=== PATIENT | male | born 1975 | race Caucasian/White ===

== ENCOUNTER 2016-11-10 16:50 | Emergency (ER) | payer BC, OTHER ==
[2016-11-10] MEDS ORDERED: Tetan/Diph/Pertus SYR(Tdap)* 0.5 ML SYR(BOOSTRIX) use SYR IM ONE (18:22)
[2016-11-10] MEDS ORDERED: Ibuprofen TAB* 400 MG PO ONE (18:22)
[2016-11-10] MEDS ORDERED: traMADol TAB* 50 MG PO ONE ×3 (18:22→20:58)
--- NOTE | 2016-11-10 19:15 | RAD ---
HISTORY: Trauma to second digit of right hand COMPARISONS: None VIEWS: 3, Frontal, lateral, and oblique views of the second digit of the right hand FINDINGS: BONE DENSITY: Normal. BONES: There is no displaced fracture. JOINTS: There is no arthropathy. ALIGNMENT: There is no dislocation. SOFT TISSUES: There is soft tissue irregularity consistent with the history of laceration OTHER FINDINGS: None. IMPRESSION: NO ACUTE OSSEOUS INJURY. IF SYMPTOMS PERSIST, RECOMMEND REPEAT IMAGING.
[2016-11-10] MEDS ORDERED: Clindamycin CAP* 150 MG PO ONE (20:36)
--- NOTE | 2016-11-10 23:18 | ED ---
Upper Extremity Pain - HPI Summary HPI Summary: Patient was at home splitting wood with a pneumatic splitter when his right index finger was caught between two logs. He had immediate pain and bleeding. His drove him to the ED. His tetanus is not up to date and he has not taken any pain medication. - History of Current Complaint Chief Complaint: EDExtremityUpper Stated Complaint: RT HAND POINTER FINGER LAC Time Seen by Provider: 11/10/16 18:01 Hx Obtained From: Patient, Family/Extractive Metallurgist Mechanism Of Injury: Blunt Trauma Onset/Duration: Started Minutes Ago Timing: Constant Severity Initially: Severe Severity Currently: Severe Pain Location: Finger - right index Character: Sharp, Aching Aggravating Factor(s): Movement Alleviating Factor(s): Nothing Associated Signs & Symptoms: Positive: Swelling, Bruising Related History: Dominant Hand Right - Allergies/Home Medications Allergies/Adverse Reactions: Allergies Allergy/AdvReac Type Severity Reaction Status Date / Time Penicillins Allergy Unknown Unknown Verified 03/18/14 15:32 Reaction Details Prednisone Allergy Unknown Unknown Verified 03/18/14 15:32 Reaction Details bee Allergy Unknown Unknown Uncoded 03/18/14 15:32 Reaction Details PMH/Surg Hx/FS Hx/Imm Hx Endocrine/Hematology History: Reports: Other Endocrine/Hematological Disorders - Goiter Denies: Hx Diabetes Cardiovascular History: Reports: Hx Hypertension Denies: Hx Pacemaker/ICD Respiratory History: Reports: Hx Sleep Apnea - current CPAP user, previous compliance issues, Other Respiratory Problems/Disorders - ex-smoker GI History: Reports: Hx Gastroesophageal Reflux Disease History: Denies: Hx Dialysis, Hx Renal Disease Musculoskeletal History: Reports: Hx Back Problems - s/p lumbar laminectomy [facility], Hx Gout - sonogram 2010 Sensory History: Denies: Hx Hearing Aid Psychiatric History: Denies: Hx Panic Disorder - Surgical History Surgery Procedure, Year, and Place: LSP SURGERY 11/03, RT SHOULDER RCT 2001, RT KNEE SURGERY ARTHROSCOPY 2010, adenoids as a child Infectious Disease History: No Infectious Disease History: Denies: Traveled Outside the [place] in Last 30 Days - Family History Known Family History: Positive: None - Social History Occupation: Employed Full-time Lives: With Family Alcohol Use: Occasionally Substance Use Type: Reports: None Smoking Status (MU): Never Smoked Tobacco Review of Systems Positive: Myalgia, Decreased ROM, Edema Positive: Bruising Negative: Weakness, Paresthesia, Numbness All Other Systems Reviewed And Are Negative: Yes Physical Exam Triage Information Reviewed: Yes Vital Signs On Initial Exam: Initial Vitals Temp Pulse Resp BP Pulse Ox 98.5 F 83 12 150/107 99 11/10/16 16:56 11/10/16 16:56 11/10/16 16:56 11/10/16 16:56 11/10/16 16:56 Vital Signs Reviewed: Yes Appearance: Positive: Well-Appearing, Pain Distress, Obese Skin: Positive: Warm, Skin Color Reflects Adequate Perfusion, Dry, Tender - distal phalanx of right index finger with 2 cm laceration on medial aspect with a 1 cm laceration on the distal tip, Soft Head/Face: Positive: Normal Head/Face Inspection Eyes: Positive: EOMI, RADHIKA, Conjunctiva Clear ENT: Positive: Hearing grossly normal Respiratory/Lung Sounds: Positive: Breath Sounds Present Cardiovascular: Positive: RRR Musculoskeletal: Positive: Limited @ - DIP of right index finger flexion/ extension in 10 degree arc with pain, Pain @ - TTP DIP and distal phalanx of right index finger, Edema Right - index finger tip Neurological: Positive: Sensory/Motor Intact, Alert, Oriented to Person Place, Time, NV Bundle Intact Distally Psychiatric: Positive: Affect/Mood Appropriate AVPU Assessment: Alert Procedures - Laceration/Wound Repair 1 Location: upper extremity - right index finger Description: Linear Anesthesia: Local, 2.0%, Lido Length, Depth and Shape: 2 cm long, 5mm wide, 3mm deep Betadine Prep?: No Irrigated w/ Saline (ccs): 300 Laceration/Wound Explored: clean Closure: Single Layer Debridement: minimal Suture Type: Nylon - 5.0 Number of Sutures: 8 Layer Closure?: No Sterile Dressing Applied?: Yes 2 Location: upper extremity - right index finger tip Description: Linear Anesthesia: Local, 2.0%, Lido Length, Depth and Shape: 1 cm long, 3mm wide, 3 mm deep Betadine Prep?: No Irrigated w/ Saline (ccs): 100 Laceration/Wound Explored: clean Closure: Single Layer Debridement: minimal Suture Type: Nylon - 5.0 Number of Sutures: 3 Layer Closure?: No Sterile Dressing Applied?: Yes Diagnostics - Vital Signs Vital Signs Temp Pulse Resp BP Pulse Ox 02/19/17 16:56 98.5 F 83 12 150/107 99 - Laboratory Lab Statement: Any lab studies that have been ordered have been reviewed, and results considered in the medical decision making process. - Radiology No standard instances Xray Interpretation: No Acute Changes Radiology Interpretation Completed By: Radiologist Course/Dx - Diagnoses Differential Diagnosis/HQI/PQRI: Positive: Arthritis, Bursitis, Contusion, Fracture (Closed), Laceration, Strain, Sprain Provider Diagnoses: Laceration of right index finger, Tetanus, Crushing injury of right index finger Discharge - Discharge Plan Condition: Stable Disposition: HOME Prescriptions: Clindamycin Cap(NF) [Cleocin 300 mg Cap(NF)] 300 mg PO Q6H #38 cap traMADol TAB* [Ultram*] 50 mg PO Q6HR PRN #20 tab MDD 4 PRN Reason: Pain Patient Education Materials: Finger Laceration (ED) Referrals: Cleveland Bush MD [Primary Care Provider] - Additional Instructions: Keep your dressing clean, dry and in place for the next 48 hours. You may then remove and shower. Pat dry and cover with a clean, dry band-aid if you are going to be in a "dirty" environment, otherwise it can remain open to air. Do not soak the wound in any body of water until the sutures are removed. Elevate the hand above your heart and use Ibuprofen 600mg three times daily with meals for the next 5-7 days to reduce pain and swelling. Follow-up with your primary care provider or return to the emergency department in 10-12 days for suture removal. Return to the emergency department sooner if your symptoms worsen.
[2016-11-10 23:46] VITALS: BP 123/94
== END 2016-11-10 21:44 | disposition home or self-care (01) ==
LOC: ED 16:50
DX: S61.210A Laceration without foreign body of right index finger without damage to nail, initial encounter (principal); S67.190A Crushing injury of right index finger, initial encounter; W23.0XXA Caught, crushed, jammed, or pinched between moving objects, initial encounter; Y93.89 Activity, other specified; Y92.009 Unspecified place in unspecified non-institutional (private) residence as the place of occurrence of the external cause; Z88.0 Allergy status to penicillin; I10 Essential (primary) hypertension; G47.30 Sleep apnea, unspecified; K21.9 Gastro-esophageal reflux disease without esophagitis
CPT/HCPCS: 12001; 73140; 90715; 99283; A9270-GY

== ENCOUNTER 2017-01-20 13:38 | Emergency (ER) | payer BC ==
[2017-01-20] MEDS ORDERED: Lidocaine 2% PF * 5 ML VIAL INJ ONE ×2 (16:33→17:08)
--- NOTE | 2017-01-20 16:39 | UC ---
Laceration HPI - HPI Summary HPI Summary: While working at home this morning cut through concrete, brushed it off and cut L palm on edge of rebar. Sprinkled on powdered clotting medicine to stop the bleeding. Last Tdap 2 months ago. Denies any weakness, tingling. - History Of Current Complaint Chief Complaint: UCLaceration Stated Complaint: HAND LACERATION Time Seen by Provider: 01/20/17 16:25 Hx Obtained From: Patient Laceration Location: Hand Mechanism Of Injury: Sharp Trauma Onset/Duration: Sudden Onset Severity: Moderate Aggravating Factors: Nothing - Allergies/Home Medications Allergies/Adverse Reactions: Allergies Allergy/AdvReac Type Severity Reaction Status Date / Time Penicillins Allergy Unknown Unknown Verified 01/20/17 15:25 Reaction Details Prednisone Allergy Unknown Unknown Verified 01/20/17 15:25 Reaction Details Cefaclor [From Ceclor] Allergy Hives Verified 01/20/17 15:25 bee Allergy Unknown Unknown Uncoded 01/20/17 15:25 Reaction Details PMH/Surg Hx/FS Hx/Imm Hx Endocrine History Of: Denies: Diabetes Cardiovascular History Of: Reports: Hypertension Denies: Pacemaker/ICD GI/ History Of: Denies: Renal Disease - Surgical History Surgical History: Yes Surgery Procedure, Year, and Place: LSP SURGERY 11/03, RT SHOULDER RCT 2001, RT KNEE SURGERY ARTHROSCOPY 2010, adenoids as a child - Family History Known Family History: Positive: None - Social History Occupation: Employed Full-time Alcohol Use: Occasionally Substance Use Type: None Smoking Status (MU): Never Smoked Tobacco - Immunization History Most Recent Tetanus Shot: Pt states November 2014 Review of Systems Constitutional: Negative Skin: Other - L hand laceration Eyes: Negative ENT: Negative Respiratory: Negative Cardiovascular: Negative Gastrointestinal: Negative Genitourinary: Negative Motor: Negative Neurovascular: Negative Musculoskeletal: Negative Neurological: Negative Psychological: Negative All Other Systems Reviewed And Are Negative: Yes Physical Exam Triage Information Reviewed: Yes Appearance: Well-Appearing, No Pain Distress, Obese Vital Signs: Initial Vital Signs Temp 98.5 F 01/20/17 15:26 Pulse 85 01/20/17 15:26 Resp 16 01/20/17 15:26 BP 142/99 01/20/17 15:26 Pulse Ox 98 01/20/17 15:26 Vital Signs Reviewed: Yes Eye Exam: Normal Eyes: Positive: Conjunctiva Clear ENT Exam: Normal ENT: Positive: Normal ENT inspection, Hearing grossly normal, Pharynx normal, TMs normal Dental Exam: Normal Neck exam: Normal Respiratory Exam: Normal Respiratory: Positive: Chest non-tender, Lungs clear, Normal breath sounds, No respiratory distress, No accessory muscle use Cardiovascular Exam: Normal Cardiovascular: Positive: RRR, No Murmur Musculoskeletal Exam: Normal, Other - Full strength and ROM of L hand/fingers Musculoskeletal: Positive: Strength Intact Neurological Exam: Normal Neurological: Positive: Alert Psychological Exam: Normal Skin Exam: Other - 3.5cm lac to L palm Laceration Repair - Laceration Repair 1 Description: Linear Laceration Size After Repair: Length (cm) - 3.5, Width (mm) - 0, Depth (mm) - 0 Debridement: picked out pieces of clotting powder prior to suturing Modified For Repair: No Anesthesia Used: 2.0% Lido - 3mL Cleansing Completed Via Routine Prep: Yes Irrigation With Pressure Irrigation Device: Yes Closure Material: Sutures Closure Method: Single Layer Suture Of: Skin Suture Type: Nylon - #6 6-0 Laceration Course/Dx - Differential Dx - Laceration/Wound Provider Diagnoses: L hand laceration repair. elevated blood pressure due to discomfort Discharge - Discharge Plan Condition: Stable Disposition: HOME Patient Education Materials: Laceration (ED) Referrals: Cleveland Bush MD [Primary Care Provider] - 2 Weeks Additional Instructions: Change your bandage at least once daily, more frequently if it gets wet or dirty. Come back in 10 days for suture removal. Come back sooner if you suspect a problem, like infection.
[2017-01-20 17:48] VITALS: BP 140/101
== END 2017-01-20 23:07 | disposition home or self-care (01) ==
LOC: UCEAST 13:38
DX: S61.412A Laceration without foreign body of left hand, initial encounter (principal); W45.8XXA Other foreign body or object entering through skin, initial encounter; Y93.89 Activity, other specified; Y92.009 Unspecified place in unspecified non-institutional (private) residence as the place of occurrence of the external cause; R03.0 Elevated blood-pressure reading, without diagnosis of hypertension; I10 Essential (primary) hypertension; E66.9 Obesity, unspecified; Z88.1 Allergy status to other antibiotic agents; Z88.0 Allergy status to penicillin; Z88.8 Allergy status to other drugs, medicaments and biological substances
CPT/HCPCS: 12002; 99212; G0463

== ENCOUNTER 2017-09-20 08:22 | Emergency (ER) | payer BC ==
[2017-09-20 08:34] VITALS: BP 148/94
--- NOTE | 2017-09-20 08:36 | UC ---
Respiratory Complaint HPI - HPI Summary HPI Summary: 42 yo male with one week hx of facial pressure and pain as well as cough ? fever no CP or SOB no n/v/d hx nasal fx and sinusitis - History of Current Complaint Chief Complaint: UCGeneralIllness Stated Complaint: URI Time Seen by Provider: 09/20/17 08:29 Hx Obtained From: Patient Onset/Duration: Gradual Onset, Lasting Weeks Timing: Constant Severity Initially: Moderate Severity Currently: Moderate Pain Intensity: 4 Pain Scale Used: 0-10 Numeric Character: Cough: Nonproductive Aggravating Factors: Nothing Alleviating Factors: Nothing Associated Signs And Symptoms: Positive: Nasal Congestion, Hoarseness, Sinus Discomfort - Allergies/Home Medications Allergies/Adverse Reactions: Allergies Allergy/AdvReac Type Severity Reaction Status Date / Time Penicillins Allergy Unknown Unknown Verified 09/20/17 08:35 Reaction Details Prednisone Allergy Unknown Unknown Verified 09/20/17 08:35 Reaction Details Cefaclor [From Ceclor] Allergy Hives Verified 09/20/17 08:35 bee Allergy Unknown Unknown Uncoded 09/20/17 08:35 Reaction Details Home Medications: Home Medications Phenylephrine-Diphenhydramine- [Mucinex Fast-Max Day Time] 20 - 40 ml PO BEDTIME PRN 09/20/17 [History Confirmed 09/20/17] PMH/Surg Hx/FS Hx/Imm Hx Previously Healthy: Yes Cardiovascular History: Hypertension Respiratory History: Bronchitis, Pneumonia - Surgical History Surgical History: Yes Surgery Procedure, Year, and Place: LSP SURGERY 11/03, RT SHOULDER RCT 2001, RT KNEE SURGERY ARTHROSCOPY 2010, adenoids as a child - Family History Known Family History: Positive: Cardiac Disease, Hypertension, Diabetes - Social History Alcohol Use: Daily Alcohol Amount: 1-2 beer q daily Substance Use Type: None Smoking Status (MU): Never Smoked Tobacco - Immunization History Most Recent Influenza Vaccination: Not UTD Most Recent Tetanus Shot: 11/2014 Review of Systems Constitutional: Fatigue Skin: Negative Eyes: Negative ENT: Nasal Discharge, Sinus Congestion, Sinus Pain/Tenderness Respiratory: Cough Cardiovascular: Negative Gastrointestinal: Negative Genitourinary: Negative Motor: Negative Neurovascular: Negative Musculoskeletal: Negative Neurological: Negative Psychological: Negative Is Patient Immunocompromised?: No All Other Systems Reviewed And Are Negative: Yes Physical Exam Triage Information Reviewed: Yes Appearance: Well-Appearing, No Pain Distress, Well-Nourished Vital Signs: Initial Vital Signs Temp 97.3 F 09/20/17 08:28 Pulse 63 09/20/17 08:28 Resp 18 09/20/17 08:28 BP 148/94 09/20/17 08:28 Pulse Ox 98 09/20/17 08:28 Vital Signs Reviewed: Yes Eyes: Positive: Conjunctiva Clear ENT: Positive: Hearing grossly normal, Pharyngeal erythema, Nasal congestion, Nasal drainage, Hoarse voice, Sinus tenderness - L>R, Uvula midline, Other - deviated septum. Negative: TM bulging, TM dull, TM red, Tonsillar swelling, Tonsillar exudate, Trismus, Muffled voice Dental Exam: Normal Neck: Positive: Supple, Nontender, No Lymphadenopathy Respiratory: Positive: Chest non-tender, Lungs clear, Normal breath sounds Cardiovascular: Positive: RRR, No Murmur Musculoskeletal: Positive: ROM Intact, No Edema Neurological: Positive: Alert Psychological Exam: Normal Skin Exam: Normal UC Diagnostic Evaluation - Laboratory O2 Sat by Pulse Oximetry: 98 - normal/not hypoxic Respiratory Course/Dx - Differential Dx/Diagnosis Provider Diagnoses: acute sinusitis Discharge - Discharge Plan Condition: Stable Disposition: HOME Prescriptions: DOXYcycline CAP(*) [DOXYcycline 100MG CAP(*)] 100 mg PO BID #20 cap Patient Education Materials: Sinusitis (ED) Referrals: Cleveland Bush MD [Primary Care Provider] - 5 Days (if not better) Additional Instructions: warm facial compresses saline nasal spray twice daily
== END 2017-09-20 08:57 | disposition home or self-care (01) ==
LOC: UCEAST 08:22
DX: J01.90 Acute sinusitis, unspecified (principal); I10 Essential (primary) hypertension; Z88.0 Allergy status to penicillin; Z88.8 Allergy status to other drugs, medicaments and biological substances; Z88.1 Allergy status to other antibiotic agents; Z91.030 Bee allergy status
CPT/HCPCS: 99212; G0463

== ENCOUNTER 2017-11-03 07:09 | Emergency (ER) | payer BC ==
[2017-11-03 07:38] VITALS: BP 141/83
--- NOTE | 2017-11-03 08:02 | UC ---
Back Pain HPI - HPI Summary HPI Summary: Pt presents with low back pain for the last 3 days. He tells me that he has a very physically demanding job and has been lifting/bending various materials. Does not recall a specific injury 3 days ago, but later that night felt his lower back tighten up and become painful. He has a history of back surgery for spinal stenosis and "disc issues" - says this feels similar. His pain is located on the right side of his lower back and does radiate into his right buttock. Has been taking ibuprofen with little relief. Denies fever, chills, numbness, tingling, saddle anesthesia, dysuria, or loss of bowel/bladder control. - History of Current Complaint Chief Complaint: UCBackPain Stated Complaint: BACK PAIN Time Seen by Provider: 11/03/17 08:02 Hx Obtained From: Patient Onset/Duration: Sudden Onset Timing: Constant Severity Initially: Moderate Severity Currently: Moderate Pain Intensity: 8 Pain Scale Used: 0-10 Numeric Character: Aching, Spasmodic, Stiffness Aggravating Factor(s): Movement, Lifting, Bending Alleviating Factor(s): Rest - Allergies/Home Medications Allergies/Adverse Reactions: Allergies Allergy/AdvReac Type Severity Reaction Status Date / Time MS Penicillins [Penicillins] Allergy Unknown Unknown Verified 11/03/17 07:38 Reaction Details MS Prednisone [Prednisone] Allergy Unknown Unknown Verified 11/03/17 07:38 Reaction Details MS Cefaclor [From Ceclor] Allergy Hives Verified 11/03/17 07:38 bee Allergy Unknown Unknown Uncoded 11/03/17 07:38 Reaction Details Home Medications: Home Medications Ibuprofen TAB* [Motrin TAB* 600 MG] 600 mg PO Q6H PRN 11/03/17 [History Confirmed 11/03/17] PMH/Surg Hx/FS Hx/Imm Hx Previously Healthy: Yes - Surgical History Surgical History: Yes Surgery Procedure, Year, and Place: LSP SURGERY 11/03, RT SHOULDER RCT 2001, RT KNEE SURGERY ARTHROSCOPY 2010, adenoids as a child - Family History Known Family History: Positive: None, Cardiac Disease, Hypertension, Diabetes - Social History Occupation: Employed Full-time Lives: With Family Alcohol Use: Daily Alcohol Amount: 1-2 beer q daily Substance Use Type: None Smoking Status (MU): Former Smoker Type: Cigarettes Length of Time of Smoking/Using Tobacco: 15 years - Immunization History Most Recent Influenza Vaccination: Not UTD Most Recent Tetanus Shot: 11/2014 Review of Systems Constitutional: Negative Skin: Negative Respiratory: Negative Cardiovascular: Negative Gastrointestinal: Negative Genitourinary: Negative Musculoskeletal: Other: - LBP Neurological: Negative Psychological: Negative All Other Systems Reviewed And Are Negative: Yes Physical Exam Triage Information Reviewed: Yes Appearance: Well-Appearing, No Pain Distress, Well-Nourished Vital Signs: Initial Vital Signs Temp 97.4 F 11/03/17 07:31 Pulse 79 11/03/17 07:31 Resp 16 11/03/17 07:31 BP 141/83 11/03/17 07:31 Pulse Ox 97 11/03/17 07:31 Vital Signs Reviewed: Yes Neck: Positive: Supple, No Lymphadenopathy, Other: - FROM. NTTP. Respiratory: Positive: Lungs clear, Normal breath sounds, No respiratory distress, No accessory muscle use Cardiovascular: Positive: RRR, No Murmur, Pulses Normal Abdomen Description: Negative: CVA Tenderness (R), CVA Tenderness (L) Musculoskeletal: Positive: Strength Intact - B/L LEs, ROM Intact - B/L LEs, No Edema, ROM Limited @ - Spine flexion due to pain, Other: - TTP over right lumbar paraspinal muscles. Positive SLR on right. Negative MARIA VICTORIA. Neurological: Positive: Alert, Other: - Sensations intact L3-S1 b/l Psychological: Positive: Age Appropriate Behavior Skin: Negative: rashes, significant lesion(s) Back Pain Course/Dx - Course Course Of Treatment: Suspect low back strain. Physical therap, flexeril, and toradol IM today. - Differential Dx/Diagnosis Provider Diagnoses: Low back strain Discharge - Discharge Plan Condition: Stable Disposition: HOME Prescriptions: Cyclobenzaprine TAB* [Flexeril 10 MG TAB*] 10 mg PO BEDTIME PRN #14 tab PRN Reason: Pain Patient Education Materials: Low Back Strain (ED), Lower Back Exercises (ED) Referrals: Cleveland Bush MD [Primary Care Provider] - Additional Instructions: If you develop a fever, shortness of breath, chest pain, new or worsening symptoms - please call your PCP or go to the ED. Your blood pressure was high at todays visit. Please see your primary provider within 4 weeks for recheck and re-evaluation. 1) Please follow up with Physical therapy for ongoing evaluation and treatment of your back pain
[2017-11-03] MEDS ORDERED: Ketorolac INJ* 60 MG/2 ML VIAL IM ONE (08:13)
== END 2017-11-03 08:43 | disposition home or self-care (01) ==
LOC: UCEAST 07:09
DX: S39.012A Strain of muscle, fascia and tendon of lower back, initial encounter (principal); X58.XXXA Exposure to other specified factors, initial encounter; Y93.9 Activity, unspecified; Y92.9 Unspecified place or not applicable; Z88.0 Allergy status to penicillin; Z88.8 Allergy status to other drugs, medicaments and biological substances; Z88.1 Allergy status to other antibiotic agents; Z91.030 Bee allergy status; Z87.891 Personal history of nicotine dependence
CPT/HCPCS: 99212; G0463; J1885

== ENCOUNTER 2018-04-10 17:06 | Emergency (ER) | payer BC ==
--- OUTSIDE RECORDS SUMMARY | 2018-04-10 17:26 | XMS REPORT ---
:1975 External Reference #:[id number] Author Organization [facility] Address [address] [place] [address] Phone [phone] Care Team Providers Name Role Phone Shade Joel MD Care Team Information Leaf Conditioner Unavailable Payers Type Date Identification Numbers Payment Provider Subscriber Commercial Expires: Policy Number: [employer] [place] Alan Lovelace 2016 [id number] PayID: [id number] [address] [address] [place] [address] Medigap Part B Effective: 2016 Policy Number: [employer] [place] Fabiola Lovelace [id number] PayID: [id number] [address] [address] [place] [address] Problems Date Description Provider Status Onset: 02/01/2014 Acute prostatitis Dave Jimenez P.A.-C Active Onset: 06/03/2014 Prostatitis PARAS Valentin Active Onset: 03/18/2018 Increased frequency of urination PARAS Linder Active Onset: 11/22/2014 Abdominal pain Shade Joel MD Active Onset: 07/08/2014 Retention of urine Shade Joel MD Active Onset: 07/08/2014 Malaise and fatigue Shade Jole MD Active Onset: 07/08/2014 Dribbling of urine Shade Joel MD Active Onset: 07/08/2014 Dysuria Shade Joel MD Active Onset: 07/08/2014 Nocturia Shade Joel MD Active Onset: 07/08/2014 Disorder of male genital organ Shade Joel MD Active Onset: 07/08/2014 Chronic prostatitis Shade Joel MD Active Family History Date Family Member(s) Problem(s) Comments Father Prostate Cancer Father Kidney stones Mother Cancer Free Text Denies Prostate, Bladder, Kidney Cancer. No family history of kidney stones. Social History Type Date Description Comments Marital Status Patient is Occupation Integration Director Cigarette Use Former Cigarette Smoker Quit 2012 ETOH Use Occ Alcohol Intake Allergies, Adverse Reactions, Alerts Date Description Reaction Status Severity Comments 02/01/2014 Penicillins Urticaria active 02/01/2014 Ceclor Urticaria active Medications Medication Date Status Form Strength Qnty SIG Indications Ordering Provider Doxycycline 03/18/ Active Capsules 100mg 42caps 1 by mouth Shade Cinthia 2017 twice a day [facility] / Active Tablets Unknown 0000 Cipro 11/22/ Hx Tablets 250mg 1tabs 1 by mouth Shade Maher 2014 - in office [facility] 11/23/ D 2014 Finasteride 11/22/ Hx Tablets 5mg 90tabs 1 by mouth Shade 2014 - every day [facility] 2017 Bactrim 17/ Hx Tablets 400-80mg 90tabs one by Shade 2013 - mouth every [facility] 10/13/ night, D 2014 before bed, after finishing twice per day therapy Flomax 07/08/ Hx Capsules 0.4mg 90caps 1 by mouth 788.20 Shade 2013 - every day, [facility] 03/17/ after D 2017 dinner No Active 06/22/ Hx Unknown Medications 2013 - 2013 Bactrim DS 06/22/ Hx Tablets 800-160mg 42tabs 1 by mouth [facility] 2013 - twice a day [facility] 2014 No Active 06/03/ Hx Unknown Medications 2013 - 2013 Doxycycline 06/03/ Hx Tablets DR 100mg 42tabs 1 tab by 601.0 Shade Cinthia 2013 - mouth twice [facility] 06/22/ a day for 3 D 2013 weeks Bactrim DS 03/03/ Hx Tablets 800-160mg 60tabs 1 by mouth [facility] 2013 - twice a day [facility] D 2013 Cipro 02/01/ Hx Tablets 500mg 42tabs 1 by mouth [facility] 2013 - twice a day [facility] 06/01/ x 21 days D 2013 Agatha / Hx Tablets 60mg er - one by Unknown Allergy 0000 - mouth twice 03/03/ a day as 2014 needed Supplement / Hx Unknown W/Saw 0000 - [place] 2017 Vital Signs Date Vital Result Comment 03/18/2018 BP Systolic 138 mmHg BP Diastolic 94 mmHg Heart Rate 70 /min Post Void Residual ml 09 Bladder Scanner, Indication: weak stream 05/26/2015 Height 78 inches 6'6" Weight 311.00 lb Weight in kg's 141.070 BMI (Body Mass Index) 35.9 kg/m2 BP Systolic 122 mmHg BP Diastolic 83 mmHg Heart Rate 72 /min 11/22/2014 Height 78 inches 6'6" Weight 313.00 lb Weight in kg's 141.977 BMI (Body Mass Index) 36.2 kg/m2 BP Systolic 126 mmHg BP Diastolic 81 mmHg Heart Rate 78 /min 10/14/2014 Height 78 inches 6'6" Weight 304.00 lb Weight in kg's 137.894 BMI (Body Mass Index) 35.1 kg/m2 BP Systolic 140 mmHg BP Diastolic 90 mmHg Heart Rate 64 /min Post Void Residual ml 43 Bladder Scan 07/08/2014 Height 78 inches 6'6" Weight 305.00 lb Weight in kg's 138.348 BMI (Body Mass Index) 35.2 kg/m2 BP Systolic 125 mmHg BP Diastolic 87 mmHg Heart Rate 65 /min 06/03/2014 Height 78 inches 6'6" Weight 293.00 lb Weight in kg's 132.905 BMI (Body Mass Index) 33.9 kg/m2 BP Systolic 136 mmHg BP Diastolic 92 mmHg Heart Rate 71 /min 03/03/2014 Height 78 inches 6'6" Weight 290.00 lb Weight in kg's 131.544 BMI (Body Mass Index) 33.5 kg/m2 BP Systolic 138 mmHg BP Diastolic 78 mmHg Heart Rate 74 /min 02/01/2014 Height 78 inches 6'6" Weight 299.00 lb Weight in kg's 135.626 BMI (Body Mass Index) 34.5 kg/m2 BP Systolic 131 mmHg BP Diastolic 91 mmHg Heart Rate 73 /min Results Test Date Test Result H/L Range Note 230 Ua Routine 03/18/2018 Ua Glucose Negative Ua Protein Negative Ua Nitrite Negative Ua Leuko Negative Ua Blood Trace-lysed Ua Color Not Entered Ua Ketones Negative Ua Clarity Not Entered Ua Specific [place] 1.010 1.003-1.030 Ua PH 5.5 5.0-7.5 Ua Bilirubin Negative Ua Urobilinogen 0.2 E.U./dL 0.0-1.0 #Ua Routine 05/26/2015 Ua Glucose Negative Ua Protein Negative Ua Nitrite Negative Ua Leuko Negative Ua Blood Negative Ua Color Not Entered Ua Ketones Negative Ua Clarity Not Entered Ua Specific [place] 1.015 1.003-1.030 Ua PH 6.0 5.0-7.5 Ua Bilirubin Negative Ua Urobilinogen 0.2 E.U./dL 0.0-1.0 Fluid Culture 12/02/2014 Culture DIRECT EXAM no infection 1 #Ua Routine 11/22/2014 Ua Glucose Negative Ua Protein Negative Ua Nitrite Negative Ua Leuko Negative Ua Blood Negative Ua Color Not Entered Ua Ketones Negative Ua Clarity Not Entered Ua Specific [place] 1.020 1.003-1.030 Ua PH 7.0 5.0-7.5 Ua Bilirubin Negative Ua Urobilinogen 0.2 E.U./dL 0.0-1.0 #Ua Routine 10/14/2014 Ua Glucose Negative Ua Protein Negative Ua Nitrite Negative Ua Leuko Trace Ua Blood Trace-intact Ua Color Not Entered Ua Ketones Negative Ua Clarity Not Entered Ua Specific [place] 1.010 1.003-1.030 Ua PH 7.0 5.0-7.5 Ua Bilirubin Negative Ua Urobilinogen 0.2 E.U./dL 0.0-1.0 Xray 07/15/2014 CT Abdomen & Pelvis W/O 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 Contrast GC Chlamydia Amp Assay 07/08/2014 Specimen Type Urine Chlamydia NEGATIVE Negative 2 GC NEGATIVE Negative 3 GCCT Amp Methodology Methodology: Str <SEE NOTE> 4 Laboratory test finding 07/08/2014 Testosterone 584.62 ng/dL 300.00- 1000.00 Total Psa Only 0.94 ng/mL 0.00-4.00 #Ua Routine 07/08/2014 Ua Glucose Negative Ua Protein Negative Ua Nitrite Negative Ua Leuko Negative Ua Blood Negative Ua Color Not Entered Ua Ketones Negative Ua Clarity Not Entered Ua Specific [place] 1.020 1.003-1.030 Ua PH 7.0 5.0-7.5 Ua Bilirubin Negative Ua Urobilinogen 0.2 E.U./dL 0.0-1.0 #Ua Routine 06/03/2014 Ua Glucose Negative Ua Protein Negative Ua Nitrite Negative Ua Leuko Negative Ua Blood Negative Ua Color Not Entered Ua Ketones Negative Ua Clarity Not Entered Ua Specific [place] 1.020 1.003-1.030 Ua PH 6.5 5.0-7.5 Ua Bilirubin Negative Ua Urobilinogen 0.2 E.U./dL 0.0-1.0 #Ua Routine 03/03/2014 Ua Glucose Negative Ua Protein Negative Ua Nitrite Negative Ua Leuko Negative Ua Blood Trace-intact Ua Color Not Entered Ua Ketones Trace Ua Clarity Not Entered Ua Specific [place] 1.020 1.003-1.030 Ua PH 6.0 5.0-7.5 Ua Bilirubin Negative Ua Urobilinogen 0.2 E.U./dL 0.0-1.0 #Ua Routine 02/01/2014 Ua Glucose Negative Ua Protein Negative Ua Nitrite Negative Ua Leuko Negative Ua Blood Negative Ua Color Not Entered Ua Ketones Negative Ua Clarity Not Entered Ua Specific [place] 1.025 1.003-1.030 Ua PH 6.0 5.0-7.5 Ua Bilirubin Negative Ua Urobilinogen 0.2 E.U./dL 0.2-1 1 DIRECT EXAM ^ WBC's or organisms were not found CULTURE OBSERVATIONS Rare colonies of Mixed growth consistent with skin yanet present MRSA screen test negative 2 A negative result does not rule out Chlamydia trachomatis infection because results are dependent on adequate specimen collection, absence of inhibitors, and sufficient DNA to be detected. 3 A negative result does not rule out Neisseria gonorrhoeae infection because results are dependent on adequate specimen collection, absence of inhibitors, and sufficient DNA to be detected. 4 Methodology: Strand Displacement Amplification Procedures Date CPT Code Description Status 03/18/2018 99901 Bladder Scan, Post Voiding Residual Urine Completed 11/22/2014 34714 Ultrasound,Prostate-Ultrasound Completed 11/22/2014 87964 Cystourethroscopy, Separate Procedure Completed 10/14/2014 24089 Bladder Scan, Post Voiding Residual Urine Completed 10/14/2014 65919 Urodynamics, Complex Uroflowmetry Eg Calibrated Completed Electronic Office 07/08/2014 14579 Bladder Scan, Post Voiding Residual Urine Completed Encounters Type Date Location Provider CPT E/M Dx Office Visit 03/18/2018 3:40p [place]/ PARAS Hendrix [address]7534 N41.0 Urology R35.0 Office Visit 05/26/2015 11:00a [place]/ Dave Mancilla, [address] 601.1 Urology P.A.-C 788.43 788.35 608.89 Office Visit 11/22/2014 3:20p [place]/ [place] [address] 601.1 Urology 608.89 788.1 789.09 Office Visit 10/14/2014 1:00p [place] PARAS Valentin [address]1675 601.1 788.1 788.20 Office Visit 07/08/2014 8:20a [facility]/ [place] [address] 601.1 Urology 608.89 788.43 788.1 788.35 780.79 788.20 Office Visit 06/03/2014 8:00a [place]/ [facility] PARAS Valentin 17639 601.9 601.0 Office Visit 03/03/2014 3:20p [place]/ [facility] PARAS Valentin [address]3375 601.0 Urology Office Visit 02/01/2014 3:00p [place]/ [facility] Dave Jimenez, P.A.-C 85633 601.0 Urology Plan of Care Future Appointment(s):04/16/2018 9:00 am - Shade Joel MD at [place]/ [facility] Bpadqnr4603/18/2018 - Lety Sam,PAN41.0 Acute prostatitisComments: Patient has complaints of symptoms suggestive of prostatitis. Patient has had these symptoms previously 3 years ago with no improvement with months of antibiotics and was told he had Interstitial Cystitis. I had a long patient with discussion regarding prostatitis and Interstitial Cystitis. Discussed that chronic prostatitis may not always be infectious in nature. Patient is aware of triggers for himthat generally cause irritative voiding symptoms, including acidic foods, caffeine, and ETOH. Advised on importance of avoiding these. Advised patient I would like to treat with 3 week course of Doxycycline. Medication use and side effects discussed with patient. Patient will have follow up in 3-4weeks to reassess for symptom resolution.R35.0 Frequency of micturitionComments:No retention noted via bladder scanner. Please see above.AllNew Medication:Doxycycline Hyclate 100 mgFollow up:-- Follow up in 3-[address] Joel
--- NOTE | 2018-04-10 18:04 | RAD ---
INDICATION: Chest pain COMPARISON: September 23, 2009 TECHNIQUE: PA and lateral dual-energy views were obtained. FINDINGS: Bones/Soft Tissues: There are no acute bony findings. Cardiomediastinal: The heart is normal in size. There is prominence of the ascending thoracic aorta which appears mildly progressive. Lungs: There are no infiltrates. Pleura: There are no pleural effusions. Other: None IMPRESSION: NO ACTIVE DISEASE. CONSIDER FOLLOW-UP ECHOCARDIOGRAPHY TO EVALUATE THE ASCENDING AORTA AND AORTIC ROOT
--- NOTE | 2018-04-10 18:18 | ED ---
HPI Chest Pain - HPI Summary HPI Summary: This is scribe Sarah Radames documenting for attending Bradley Silveira MD. 43 year old M presenting to [facility] with complains of chest pain since 12:00 yesterday while mowing the lawn. He states that pain radiates across his chest, into his neck, and towards his shoulders and back. He describes the pain as pressure and pounding. The patient rates the pain 4/10 in severity. Symptoms aggravated by thoughts of chest pain. Symptoms alleviated by nothing. Additionally complains of lower abdominal ache, shortness of breath, palpitations. reports that patient has been working outside this past week , so he has been dehydrated. Patient denies nausea, vomiting, dizziness. Patient has hx HTN but is not on HTN medication. - History of Current Complaint Chief Complaint: EDChestPainROMI Time Seen by Provider: 04/10/18 17:24 Hx Obtained From: Patient, Family/Case Operator - Onset/Duration: Started Days Ago - 12:00 yesterday, Still Present Timing: Constant Initial Severity: Severe Current Severity: Moderate Pain Intensity: 4 Pain Scale Used: 0-10 Numeric Chest Pain Radiates: Yes Chest Pain Radiates To:: Other - across his chest, into his neck, and towards his shoulders and back Character: Pounding, Pressure/Squeezing Aggravating Factor(s): Other: - thoughts of chest pain Alleviating Factor(s): Nothing Associated Signs and Symptoms: Positive: Negative - nausea, vomiting, dizziness , Other: - lower abdominal ache, shortness of breath, palpitations, dehydration - Allergy/Home Medications Allergies/Adverse Reactions: Allergies Allergy/AdvReac Type Severity Reaction Status Date / Time bee venom protein (honey bee) Allergy Unknown Verified 04/10/18 17:16 Reaction Details cefaclor Allergy Hives Verified 04/10/18 17:16 Penicillins Allergy Unknown Verified 04/10/18 17:16 Reaction Details prednisone Allergy Unknown Verified 04/10/18 17:16 Reaction Details PMH/Surg Hx/FS Hx/Imm Hx Previously Healthy: No Endocrine/Hematology History: Reports: Hx Thyroid Disease - Hyperthyroidism- no meds, Other Endocrine/Hematological Disorders - Goiter Denies: Hx Diabetes Cardiovascular History: Reports: Hx Hypercholesterolemia, Hx Hypertension Denies: Hx Pacemaker/ICD Respiratory History: Reports: Hx Sleep Apnea - current CPAP user, previous compliance issues, Other Respiratory Problems/Disorders - ex-smoker Denies: Hx Asthma, Hx Chronic Obstructive Pulmonary Disease (COPD) GI History: Reports: Hx Gastroesophageal Reflux Disease Denies: Hx Ulcer History: Denies: Hx Dialysis, Hx Renal Disease Musculoskeletal History: Reports: Hx Back Problems [facility], [facility]x Gout - sonogram 2010 Sensory History: Denies: Hx Hearing Aid Psychiatric History: Reports: Other Psychiatric Issues/Disorders - insomnia Denies: Hx Anxiety, Hx Panic Disorder - Surgical History Surgery Procedure, Year, and Place: LSP SURGERY 11/03, RT SHOULDER RCT 2001, RT KNEE SURGERY ARTHROSCOPY 2010, adenoids as a child Infectious Disease History: No Infectious Disease History: Denies: Hx Human Immunodeficiency Virus (HIV), Traveled Outside the [place] in Last 30 Days - Family History Known Family History: Positive: Cardiac Disease - grandfather had ME at 69 y/o, Hypertension, Diabetes - Social History Alcohol Use: Daily Alcohol Amount: 1-2 beer q daily Hx Substance Use: Yes Substance Use Type: Reports: Marijuana. Denies: Cocaine Hx Tobacco Use: Yes Smoking Status (MU): Former Smoker Type: Cigarettes Length of Time of Smoking/Using Tobacco: 15 years Review of Systems Positive: Palpitations, Chest Pain Positive: Shortness Of Breath Positive: Other - lower abdominal ache. Negative: Vomiting, Nausea Neurological: Negative - dizziness All Other Systems Reviewed And Are Negative: Yes Physical Exam - Summary Physical Exam Summary: VITAL SIGNS: Reviewed. GENERAL: Patient is a well-developed and nourished male who is lying comfortable in the stretcher. Patient is not in any acute respiratory distress. HEAD AND FACE: No signs of trauma. No ecchymosis, hematomas or skull depressions. No sinus tenderness. EYES: PERRLA, EOMI x 2, No injected conjunctiva, no nystagmus. EARS: Hearing grossly intact. Ear canals and tympanic membranes are within normal limits. MOUTH: Oropharynx within normal limits. NECK: Supple, trachea is midline, no adenopathy, no JVD, no carotid bruit, no c- spine tenderness, neck with full ROM. CHEST: Symmetric, no tenderness at palpation LUNGS: Clear to auscultation bilaterally. No wheezing or crackles. CVS: Regular rate and rhythm, S1 and S2 present, no murmurs or gallops appreciated. ABDOMEN: Soft, non-tender. No signs of distention. No rebound no guarding, and no masses palpated. Bowel sounds are normal. EXTREMITIES: FROM in all major joints, no edema, no cyanosis or clubbing. NEURO: Alert and oriented x 3. No acute neurological deficits. Speech is normal and follows commands. SKIN: Dry and warm Triage Information Reviewed: Yes Vital Signs On Initial Exam: Initial Vitals Temp Pulse Resp BP Pulse Ox 97.8 F 74 16 121/86 100 04/10/18 17:16 04/10/18 17:16 04/10/18 17:16 04/10/18 17:16 04/10/18 17:16 Vital Signs Reviewed: Yes Diagnostics - Vital Signs Vital Signs Temp Pulse Resp BP Pulse Ox 04/10/18 18:12 97 04/10/18 18:09 59 20 142/83 98 04/10/18 18:06 63 15 99 04/10/18 17:16 97.8 F 74 16 121/86 100 - Laboratory Result Diagrams: 04/10/18 19:20 04/10/18 19:20 Lab Statement: Any lab studies that have been ordered have been reviewed, and results considered in the medical decision making process. - Radiology CXR Radiology Interpretation Completed By: Radiologist - NO ACTIVE DISEASE. CONSIDER FOLLOW-UP ECHOCARDIOGRAPHY TO EVALUATE THE ASCENDING AORTA AND AORTIC ROOT. ED physician has reviewed this report. - CT Chest CT Interpretation Completed By: Radiologist - 1. There is colonic diverticulosis without evidence for acute diverticulitis. 2. No other acute CT pathology. ED physician has reviewed this report. - EKG 1722 Cardiac Rate: NL - BPM EKG Rhythm: Sinus Rhythm EKG Interpretation: No ST elevations Chest Pain Course/Dx - Course Assessment/Plan: This patient is a 43-year-old male who presents to the emergency department with a chief complaint of having chest pain in the upper part of the chest and left shoulder. Patient reports that the pain started yesterday while he was doing some work and heavy lifting. The pain is sharp and pressure-like pain. The patient has past medical history significant for hypertension and dyslipidemia with no medications. Chest x-ray impression: No active disease. Consider echocardiogram to every the ascending AORTIC ROOT. I discussed the case with Dr. Wu who is the radiologist and he actually recommends a chest CT to rule out dissection. Chest CT impression: No acute disease. At this point the patient is feeling better. I discussed the case with Dr. Brooks from cardiology and he recommends for the patient to be discharged home after the second negative troponin and a follow-up with him on Friday. I discussed the plan with the patient and he agrees. I also recommended to return to the emergency room with the patient the purpose more chest pain, short of breath, diaphoresis or any other complaint. At this time I will be signing out the patient to Dr. Dorsey to follow-up the second troponin at 10:30 PM and if negative the patient can be discharged home with follow-up with Dr. Brooks. - Diagnoses Provider Diagnoses: Chest pain - Provider Notifications Discussed Care Of Patient With: Kyle Brooks Time Discussed With Above Provider: 21:47 Instructed by Provider To: Other - Dr. Brooks, cardiology, says that patient can be discharged. Patient can call his office on Friday 04/[address] Brooks might be able to see patient Friday 04/13 afternoon. Discharge - Sign-Out/Discharge Documenting (check all that apply): Sign-Out Patient Signing out patient TO: Sánchez Gonsalves - awaiting second troponin - Discharge Plan Condition: Stable Disposition: HOME Patient Education Materials: Chest Pain (ED) Referrals: Naida Khoury NP [Primary Care Provider] - Kyle Brooks DO [Medical Doctor] - Additional Instructions: Follow up with Dr. Brooks, cardiology, on Friday04/13/18. Return to the Emergency Department for new or worsening symptoms. - Billing Disposition and Condition Condition: STABLE Disposition: Home
[2018-04-10 19:39] LABS: ABS Basophils 0 10^3/ul (0-0.2); ABS Eosinophils 0.1 10^3/ul (0-0.6); ABS Lymphocytes 2.2 10^3/ul (1.0-4.8); ABS Monocytes 0.7 10^3/ul (0-0.8); ABS Nucleated RBC 0 10^3/ul; Eosinophil % 0.7 % (0-6); Hematocrit 45 % (42-52); Lymphocyte % 19.8 % (25-47); Mean Corpuscular HGB Conc 34 g/dl (31-36); Mean Corpuscular Hemoglobin 31 pg (27-31); Mean Corpuscular Volume 92 fL (80-94); Mean Platelet Volume 8.8 um3 (7.4-10.4); Nucleated Red Blood Cells % 0; Platelet Count 244 10^3/ul (150-450); Red Blood Count 4.86 10^6/ul (4.00-5.40); Red Cell Distribution Width 13 % (10.5-15); White Blood Count 10.9 10^3/ul (3.5-10.8)
[2018-04-10 19:55] LABS: EGFR Non-African American 85.3 (>60); INR 1.02 (0.77-1.02)
[2018-04-10] MEDS ORDERED: Iohexol 300* (CONTRAST) 10 ML SDV IV ONE (19:57)
[2018-04-10 20:05] LABS: Urine Appearance Cloudy; Urine Blood Negative (Negative); Urine Color Yellow; Urine Ketones Negative (Negative); Urine Protein Negative (Negative); Urine Specific Gravity 1.015 (1.010-1.030); Urine Urobilinogen Negative (Negative)
--- NOTE | 2018-04-10 22:22 | RAD ---
INDICATION: Chest pain and tightness. COMPARISON: Chest radiograph of the same date TECHNIQUE: Multidetector CT images were obtained from the lung apices to the upper abdomen with 80 mL Omnipaque 300 IV contrast. Multiplanar reformation. REPORT: No focal pulmonary lesion, compelling alveolar consolidation, pleural effusion, pneumothorax. Negative for thoracic lymphadenopathy, cardiomegaly, pericardial effusion. Negative for pneumomediastinum. Mildly ectatic ascending thoracic aorta measuring up to 4.5 cm diameter at the level of the aortic arch. No evidence for aortic dissection within limits of routine contrast-enhanced CT. Negative for mediastinal hematoma. Unremarkable images through the upper abdomen. Negative for suspicious osseous lesions or fracture. IMPRESSION: #. No acute cardiopulmonary process evident. #. Mildly ectatic ascending thoracic aorta.
[2018-04-11 00:14] VITALS: BP 126/73
== END 2018-04-11 00:12 | disposition home or self-care (01) ==
LOC: ED 17:06
DX: R07.89 Other chest pain (principal); I77.810 Thoracic aortic ectasia; I10 Essential (primary) hypertension; E78.5 Hyperlipidemia, unspecified; Z82.49 Family history of ischemic heart disease and other diseases of the circulatory system; Z87.891 Personal history of nicotine dependence; Z88.0 Allergy status to penicillin; Z88.8 Allergy status to other drugs, medicaments and biological substances; Z88.3 Allergy status to other anti-infective agents
CPT/HCPCS: 36415; 71045; 71260; 80053; 81003; 82550; 82553; 83880; 84443; 84484; 85025; 85610; 85730; 93005; 99283; Q9967

== ENCOUNTER 2019-09-05 15:00 | Emergency (ER) | payer BC ==
[2019-09-05 15:31] VITALS: BP 135/88
--- NOTE | 2019-09-05 15:43 | UC ---
Throat Pain/Nasal [place] HPI - HPI Summary HPI Summary: sinus pain and pressure worsening over the past 2 days----no fevers - History of Current Complaint Chief Complaint: UCRespiratory Stated Complaint: CONGESTED Time Seen by Provider: 09/05/19 15:22 Hx Obtained From: Patient Onset/Duration: Sudden Onset, Lasting Weeks - 2 Pain Intensity: 8 Pain Scale Used: 0-10 Numeric Cough: None Associated Signs & Symptoms: Positive: Sinus Discomfort - Allergies/Home Medications Allergies/Adverse Reactions: Allergies Allergy/AdvReac Type Severity Reaction Status Date / Time bee venom protein (honey bee) Allergy Unknown Verified 09/05/19 15:26 Reaction Details cefaclor Allergy Hives Verified 09/05/19 15:26 Penicillins Allergy Unknown Verified 09/05/19 15:26 Reaction Details prednisone Allergy Unknown Verified 09/05/19 15:26 Reaction Details PMH/Surg Hx/FS Hx/Imm Hx Previously Healthy: Yes - Surgical History Surgical History: Yes Surgery Procedure, Year, and Place: LSP SURGERY 11/03, RT SHOULDER RCT 2001, RT KNEE SURGERY ARTHROSCOPY 2010, adenoids as a child - Family History Known Family History: Positive: Cardiac Disease - grandfather had OR at 69 y/o, Hypertension, Diabetes - Social History Occupation: Employed Full-time Lives: With Family Alcohol Use: Occasionally Alcohol Amount: 1-2 beer q daily Substance Use Type: Marijuana Smoking Status (MU): Former Smoker Type: Cigarettes Length of Time of Smoking/Using Tobacco: 15 years - Immunization History Most Recent Influenza Vaccination: Not UTD Most Recent Tetanus Shot: 11/2014 Review of Systems All Other Systems Reviewed And Are Negative: Yes Constitutional: Positive: Chills, Fatigue Skin: Positive: Negative Eyes: Positive: Negative ENT: Positive: Sore Throat, Sinus Congestion, Sinus Pain/Tenderness Respiratory: Positive: Negative Cardiovascular: Positive: Negative Gastrointestinal: Positive: Negative Genitourinary: Positive: Negative Motor: Positive: Negative Neurovascular: Positive: Negative Musculoskeletal: Positive: Negative Neurological: Positive: Negative Psychological: Positive: Negative Is Patient Immunocompromised?: No Physical Exam Triage Information Reviewed: Yes Appearance: Well-Appearing, No Pain Distress, Well-Nourished Vital Signs: Initial Vital Signs Temp 98.2 F 09/05/19 15:26 Pulse 64 09/05/19 15:26 Resp 18 09/05/19 15:26 BP 135/88 09/05/19 15:26 Pulse Ox 98 09/05/19 15:26 Vital Signs Reviewed: Yes Eye Exam: Normal Eyes: Positive: Conjunctiva Clear ENT Exam: Normal ENT: Positive: Normal ENT inspection, Hearing grossly normal, Pharynx normal, TMs normal, Uvula midline. Negative: Nasal congestion, Trismus, Muffled voice, Hoarse voice, Sinus tenderness Neck exam: Normal Respiratory Exam: Normal Respiratory: Positive: Chest non-tender, Lungs clear, Normal breath sounds, No respiratory distress, No accessory muscle use Cardiovascular Exam: Normal Cardiovascular: Positive: RRR, No Murmur, Pulses Normal, Brisk Capillary Refill Musculoskeletal Exam: Normal Musculoskeletal: Positive: Strength Intact, ROM Intact, No Edema Neurological Exam: Normal Neurological: Positive: Alert, Muscle Tone Normal Psychological Exam: Normal Skin Exam: Normal Throat Pain/Nasal Course/Dx - Course Course Of Treatment: will rx zithromax for use in 5-7 days if symptoms fail or worsen-follow with pcp rpn--use otc medication for symptom relief and comfort - Differential Dx/Diagnosis Provider Diagnosis: Sinusitis Discharge ED - Sign-Out/Discharge Documenting (check all that apply): Patient Departure All imaging exams completed and their final reports reviewed: No Studies - Discharge Plan Condition: Stable Disposition: HOME Prescriptions: Azithromycin TAB* [Zithromax TAB (Z-CARON) 250 mg #6 tabs] 2 tab PO .TODAY, THEN 1 DAILY #1 caron Patient Education Materials: Sinusitis (ED) Referrals: Leidy Campuzano MD [Primary Care Provider] - If Needed - Billing Disposition and Condition Condition: STABLE Disposition: Home
== END 2019-09-05 15:50 | disposition home or self-care (01) ==
LOC: UCEAST 15:00
DX: J32.9 Chronic sinusitis, unspecified (principal); Z88.0 Allergy status to penicillin; Z88.8 Allergy status to other drugs, medicaments and biological substances; Z88.1 Allergy status to other antibiotic agents; Z91.030 Bee allergy status; Z87.891 Personal history of nicotine dependence
CPT/HCPCS: 99212; G0463